=== PATIENT | male | born 1985 | race American Indian/Alaskan Native ===

== ENCOUNTER 2018-04-24 00:56 | Emergency (ER) | payer OTHER ==
[2018-04-24 01:04] VITALS: RESP 18
--- NOTE | 2018-04-24 02:11 | C.PDOC ---
History Of Present Illness 33 y/o M c PMHx testicular tumor s/p orchiectomy p/w post surgical pain. 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 He called his surgeon and oncologist for them to call in a different medication [place], he was told to go to ED for paper prescription. Patient denies any fever, discharge, or pain out of proportion to normal post op pain. has taken Percocet in past without itchiness. Time Seen by Provider: 04/24/18 01:23 Chief Complaint (Nursing): Male Genitourinary Past Medical History Vital Signs: Last Vital Signs Temp 98 F 04/24/18 01:03 Pulse 73 04/24/18 01:03 Resp 18 04/24/18 01:03 BP 133/81 04/24/18 01:03 Pulse Ox 96 04/24/18 01:03 Family History: States: No Known Family Hx - Social History Hx Alcohol Use: No Hx Substance Use: No - Immunization History Hx Tetanus Toxoid Vaccination: No Hx Influenza Vaccination: No Hx Pneumococcal Vaccination: No Review Of Systems Except As Marked, All Systems Reviewed And Found Negative. Constitutional: Negative for: Fever Cardiovascular: Negative for: Chest Pain Physical Exam - Physical Exam Appears: Non-toxic, No Acute Distress Skin: Normal Color Head: Normacephalic Additional Physical Exam Comments: Has Vicodin pills in bottle at bedside. ED Course And Treatment O2 Sat by Pulse Oximetry: 96 Medical Decision Making Medical Decision Making: [employer] checked, only prescription is for Vicodin. Will prescribe 2nd prescription. Counseled on risks of opioid use. Disposition - Disposition Disposition: HOME/ ROUTINE Disposition Time: 02:13 Condition: STABLE Prescriptions: oxyCODONE/Acetaminophen [Percocet 5/325 mg Tab] 1 tab PO Q6 #14 tab Instructions: Postoperative Pain (DC) - Clinical Impression Clinical Impression: Post-operative pain
[2018-04-24 02:24] VITALS: BP 141/87; PULSE 88; TEMP 97.6; O2SAT 98
== END 2018-04-24 02:25 | disposition home or self-care (01) ==
LOC: C.ER 00:56
DX: G89.18 Other acute postprocedural pain (principal)